=== PATIENT | male | born 1960 | race African-American/Black ===

== ENCOUNTER 2019-06-08 08:22 | Inpatient (IN) | payer MEDICARE, MEDICAID ==
[~2019-06-08] VITALS: Ht 190.5 cm; Wt 177.8 kg
[~2019-06-08 08:22] MED LIST: AMIO100T4 PO; ASPI-986 PO; DIGO0.12 PO; FURO40TA5 PO; LOSA50TA41 PO; METO25TA6 PO; TAMS0.4C31 PO; TRAM50TA3 PO
[2019-06-08] MEDS ORDERED: ASPIRIN 81MG TABLET PO ONE (09:00)
[2019-06-08] MEDS ORDERED: FUROSEMIDE 40MG/4ML VIAL IV ONE (09:00)
[2019-06-08] MEDS ORDERED: CLINDAMYCIN 600 MG in DEXTROSE 5% WATER 50 ML IV ONE (09:00)
[2019-06-08] MEDS ORDERED: NITROGLYCERIN OINT 1GM/INCH UDPKT TD ONE (09:00)
[2019-06-08] MEDS ORDERED: CLINDAMYCIN 600 MG in DEXTROSE 5% WATER 50 ML IV NR (09:15)
[2019-06-08] MEDS ORDERED: CLINDAMYCIN 600MG PREMIX 50 ML IV ONE (09:15)
[2019-06-08 09:33] LABS: BASOPHILS % 0.6 % (0.0-2.0); EOSINOPHILS % 4.6 % (0.0-5.0); HEMATOCRIT. 33.1 % (42.0-52.0); HEMOGLOBIN. 10.7 g/dL (14.0-18.0); LYMPHOCYTES % 15.9 % (20.0-50.0); MEAN CORPUSCULAR HEMOGLOBIN 27.5 pg (28.0-32.0); MEAN CORPUSCULAR VOLUME 85.1 fL (80.0-94.0); NEUTROPHILS % 69.9 % (40.0-76.0); PLATELET 189 x1000/uL (130-400); RED CELL DISTRIBUTION WIDTH 17.8 % (11.6-14.6)
[2019-06-08 09:42] LABS: CHLORIDE 108 mEq/L (98-107)
[2019-06-08 09:43] LABS: PARTIAL THROMBOPLASTIN TIME 29.9 sec (23.4-31.0); PROTHROMBIN TIME 10.7 sec (9.6-11.0)
[2019-06-08 10:17] LABS: DIGOXIN < 0.1 ng/mL (0.9-2.0)
[2019-06-08] MEDS ORDERED: CLONIDINE 0.1MG TABLET PO PRN (11:45)
[2019-06-08] MEDS ORDERED: ACETAMINOPHEN 325MG TABLET PO PRN (11:45)
[2019-06-08] MEDS ORDERED: CLINDAMYCIN 600 MG in DEXTROSE 5% WATER 50 ML IV SCH (11:45)
[2019-06-08] MEDS ORDERED: ONDANSETRON HCL 4MG/2ML INJ IV PRN (11:45)
[2019-06-08 12:00] VITALS: BP 155/95
[2019-06-08 12:22] LABS: CLARITY URINE CLEAR (CLEAR); COLOR URINE YELLOW (YELLOW); KETONES URINE NEGATIVE (NEGATIVE); LEUKOCYTE ESTERASE URINE NEGATIVE (NEGATIVE); NITRITE URINE NEGATIVE (NEGATIVE); OCCULT BLOOD URINE NEGATIVE (NEGATIVE); PH URINE 7.5 (4.5-8.0); PROTEIN URINE NEGATIVE (NEGATIVE); SPECIFIC GRAVITY URINE 1.006 (1.005-1.030); UROBILINOGEN URINE 0.2 E.U./dL (0.2-1.0)
[2019-06-08 12:37] LABS: BG BASE EXCESS 0.1 mmol/L (-2.0-2.0); BG CARBOXYHEMOGLOBIN 0.3 % (0.5-1.5); BG DEOXYHEMOGLOBIN 2.6 % (0.0-5.0); BG FRACTION INSPIRED OXYGEN 21; BG HCO3 ACT 24.7 mmol/L (22.0-26.0); BG METHEMOGLOBIN 0.2 % (0.0-1.5); BG OXYGEN SATURATION 97.4 % (92.0-98.5); BG OXYHEMOGLOBIN 96.9 % (94.0-97.0); BG PCO2 40.2 mmHg (35.0-45.0); BG PH 7.407 (7.350-7.450); BG PO2 93.9 mmHg (75.0-100.0); BG SAMPLE SITE LEFT RADIAL; BG TOTAL HEMOGLOBIN 11.9 g/dL (12.0-18.0); BG VENT MODE ROOM AIR
[2019-06-08 14:02] VITALS: BP 155/95
[2019-06-08] MEDS: ENOXAPARIN 40MG/0.4ML SYR SUBCUT SCH ×2 (15:14→20:43)
[2019-06-08 16:00] VITALS: BP 152/98
[2019-06-08] MEDS: CLINDAMYCIN 600MG PREMIX 50 ML IV SCH (17:15)
[2019-06-08] MEDS: SODIUM HYPOCHLORITE 0.125% 473ML SOLUTION TOP SCH (17:15)
[2019-06-08 20:00] VITALS: BP 154/81
[2019-06-08] MEDS: IPRATROPIUM/ALBUTEROL 0.5-3(2.5)MG/3ML NEB HHN SCH (21:11)
[2019-06-09] VITALS: BP 163/105
[2019-06-09] MEDS: CLINDAMYCIN 600MG PREMIX 50 ML IV SCH ×3 (00:18→17:09)
[2019-06-09] MEDS: IPRATROPIUM/ALBUTEROL 0.5-3(2.5)MG/3ML NEB HHN SCH ×4 (01:43→20:46)
[2019-06-09 04:00] VITALS: BP 149/71
[2019-06-09 08:00] VITALS: BP 129/80
[2019-06-09] MEDS: SODIUM HYPOCHLORITE 0.125% 473ML SOLUTION TOP SCH (08:18)
[2019-06-09] MEDS: ENOXAPARIN 40MG/0.4ML SYR SUBCUT SCH ×2 (08:18→21:07)
[2019-06-09 11:26] LABS: BASOPHILS % 0.5 % (0.0-2.0); EOSINOPHILS % 2.9 % (0.0-5.0); HEMATOCRIT. 33.3 % (42.0-52.0); HEMOGLOBIN. 10.8 g/dL (14.0-18.0); LYMPHOCYTES % 10.6 % (20.0-50.0); MEAN CORPUSCULAR HEMOGLOBIN 27.3 pg (28.0-32.0); MEAN CORPUSCULAR VOLUME 84.4 fL (80.0-94.0); MEAN PLATELET VOLUME 7.8 fl (7.4-10.4); MONOCYTES % 8.7 % (2.0-8.0); NEUTROPHILS % 77.3 % (40.0-76.0); PLATELET 209 x1000/uL (130-400); RED BLOOD CELL COUNT 3.95 mill/uL (4.7-6.1); RED CELL DISTRIBUTION WIDTH 17.7 % (11.6-14.6)
[2019-06-09 12:00] VITALS: BP 140/78
[2019-06-09 12:24] LABS: CHLORIDE 106 mEq/L (98-107)
[2019-06-09 12:31] LABS: LDL CHOLESTEROL 65 mg/dL (5-100); PHOSPHORUS 2.9 mg/dL (2.5-4.9)
[2019-06-09 12:33] LABS: HDL CHOLESTEROL 48 mg/dL (40-59)
[2019-06-09 16:00] VITALS: BP 141/73
[2019-06-09 20:00] VITALS: BP 150/81
[2019-06-09] MEDS: HYDROCODONE/ACETAMINOPHEN 5/325MG TABLET PO PRN (21:17)
[2019-06-10] VITALS: BP 140/87
[2019-06-10] MEDS: CLINDAMYCIN 600MG PREMIX 50 ML IV SCH ×3 (00:28→16:40)
[2019-06-10] MEDS: IPRATROPIUM/ALBUTEROL 0.5-3(2.5)MG/3ML NEB HHN SCH ×4 (01:18→20:44)
[2019-06-10 04:00] VITALS: BP 117/63
[2019-06-10] MEDS: HYDROCODONE/ACETAMINOPHEN 5/325MG TABLET PO PRN ×2 (06:51→22:04)
[2019-06-10 07:04] LABS: BASOPHILS % 0.6 % (0.0-2.0); EOSINOPHILS % 3.2 % (0.0-5.0); HEMATOCRIT. 32.8 % (42.0-52.0); HEMOGLOBIN. 10.8 g/dL (14.0-18.0); LYMPHOCYTES % 12.4 % (20.0-50.0); MEAN CORPUSCULAR VOLUME 85.2 fL (80.0-94.0); MEAN PLATELET VOLUME 8.5 fl (7.4-10.4); MONOCYTES % 9.7 % (2.0-8.0); NEUTROPHILS % 74.1 % (40.0-76.0); PLATELET 187 x1000/uL (130-400); RED BLOOD CELL COUNT 3.85 mill/uL (4.7-6.1); RED CELL DISTRIBUTION WIDTH 17.7 % (11.6-14.6)
[2019-06-10 08:00] VITALS: BP 141/93
[2019-06-10] MEDS: SODIUM HYPOCHLORITE 0.125% 473ML SOLUTION TOP SCH (08:18)
[2019-06-10] MEDS: ENOXAPARIN 40MG/0.4ML SYR SUBCUT SCH ×2 (08:18→21:36)
[2019-06-10 12:00] VITALS: BP 126/75
[2019-06-10 16:00] VITALS: BP 128/74
[2019-06-10 20:00] VITALS: BP 165/58
[2019-06-11] VITALS: BP 133/65
[2019-06-11] MEDS: CLINDAMYCIN 600MG PREMIX 50 ML IV SCH ×3 (01:13→17:00)
[2019-06-11] MEDS: IPRATROPIUM/ALBUTEROL 0.5-3(2.5)MG/3ML NEB HHN SCH ×4 (02:34→21:15)
[2019-06-11 04:00] VITALS: BP 135/81
[2019-06-11 06:42] LABS: BASOPHILS % 0.8 % (0.0-2.0); EOSINOPHILS % 3.6 % (0.0-5.0); HEMATOCRIT. 33.5 % (42.0-52.0); HEMOGLOBIN. 10.9 g/dL (14.0-18.0); LYMPHOCYTES % 16.2 % (20.0-50.0); MEAN CORPUSCULAR HEMOGLOBIN 27.5 pg (28.0-32.0); MEAN CORPUSCULAR VOLUME 84.7 fL (80.0-94.0); MEAN PLATELET VOLUME 8.3 fl (7.4-10.4); MONOCYTES % 8.9 % (2.0-8.0); NEUTROPHILS % 70.5 % (40.0-76.0); PLATELET 184 x1000/uL (130-400); RED BLOOD CELL COUNT 3.96 mill/uL (4.7-6.1); RED CELL DISTRIBUTION WIDTH 17.2 % (11.6-14.6)
[2019-06-11] MEDS: HYDROCODONE/ACETAMINOPHEN 5/325MG TABLET PO PRN ×2 (06:43→22:45)
[2019-06-11 08:00] VITALS: BP 147/78
[2019-06-11] MEDS: ENOXAPARIN 40MG/0.4ML SYR SUBCUT SCH ×2 (08:43→21:10)
[2019-06-11] MEDS: SODIUM HYPOCHLORITE 0.125% 473ML SOLUTION TOP SCH (08:44)
[2019-06-11 12:00] VITALS: BP 150/53
[2019-06-11 16:00] VITALS: BP 141/88
[2019-06-11 20:00] VITALS: BP 166/72
[2019-06-12] VITALS: BP 141/83
[2019-06-12] MEDS: IPRATROPIUM/ALBUTEROL 0.5-3(2.5)MG/3ML NEB HHN SCH ×2 (01:00→14:42)
[2019-06-12 04:00] VITALS: BP 136/73
[2019-06-12] MEDS: CLINDAMYCIN HCL 150MG CAPSULE PO SCH ×2 (07:15→14:38)
[2019-06-12 08:00] VITALS: BP 142/88
[2019-06-12] MEDS: SODIUM HYPOCHLORITE 0.125% 473ML SOLUTION TOP SCH (09:00)
[2019-06-12] MEDS: ENOXAPARIN 40MG/0.4ML SYR SUBCUT SCH (09:17)
[2019-06-12] MEDS ORDERED: SODIUM HYPOCHLORITE 0.125% 473ML SOLUTION TOP SCH (10:30)
[2019-06-12 12:00] VITALS: BP 131/83
[2019-06-12 13:34] VITALS: BP 131/83
[2019-06-12 16:00] VITALS: BP 142/72
== END 2019-06-12 19:10 | disposition home health service (06) | DRG 682 ==
LOC: ER 08:22 → 5WST 11:27 → ENRESERV 11:39
PROVIDERS: ADMIT Internal Medicine Nephrology; ATTEND Internal Medicine Nephrology
DX: N17.9 Acute kidney failure, unspecified (principal); J96.00 Acute respiratory failure, unspecified whether with hypoxia or hypercapnia; I13.0 Hypertensive heart and chronic kidney disease with heart failure and stage 1 through stage 4 chronic kidney disease, or unspecified chronic kidney disease; L97.219 Non-pressure chronic ulcer of right calf with unspecified severity; E44.0 Moderate protein-calorie malnutrition; L97.229 Non-pressure chronic ulcer of left calf with unspecified severity; Z68.42 Body mass index [BMI] 45.0-49.9, adult; I87.8 Other specified disorders of veins; E66.01 Morbid (severe) obesity due to excess calories; E11.22 Type 2 diabetes mellitus with diabetic chronic kidney disease; E11.51 Type 2 diabetes mellitus with diabetic peripheral angiopathy without gangrene; I45.10 Unspecified right bundle-branch block; I48.0 Paroxysmal atrial fibrillation; I89.0 Lymphedema, not elsewhere classified; I44.0 Atrioventricular block, first degree; I50.9 Heart failure, unspecified; B95.61 Methicillin susceptible Staphylococcus aureus infection as the cause of diseases classified elsewhere; L30.9 Dermatitis, unspecified; N18.9 Chronic kidney disease, unspecified; Z86.718 Personal history of other venous thrombosis and embolism; Z88.1 Allergy status to other antibiotic agents; Z91.14 Patient's other noncompliance with medication regimen
CPT/HCPCS: 36415; 36600; 71045; 78580; 80048; 80061; 80162; 81003; 82375; 82805; 83735; 83880; 84100; 84484; 85379; 87070; 93005; 93306; 93970; 94640; 96365; 97022; 97161; 99285; J1650; J1940; J3490; J7040; J7060; J7620